=== PATIENT | female | born 1985 | race Two or more races ===

== ENCOUNTER → 2018-08-29 | Outpatient (CLI) | payer OTHER ==
[2018-08-29 11:48] LABS: BASOPHIL % 0.3 % (0-2); PLATELET COUNT 242 x10^3mcL (130-400)
[2018-08-29 11:54] LABS: RED CELL DISTRIBUTION WIDTH 15.7 % (11.5-14.5)
[2018-08-29 12:28] LABS: ALBUMIN 3.9 g/dL (3.4-5.0); ALKALINE PHOSPHATASE 62 U/L (46-116); ALT/SGPT 21 U/L (14-59); AST/SGOT 17 U/L (15-37); BILIRUBIN TOTAL 0.6 mg/dL (0.20-1.00); CALCIUM 8.5 mg/dL (8.5-10.1); CARBON DIOXIDE 23.1 mmol/L (21-32); CHLORIDE SERUM 105 mmol/L (98-107); CHOLESTEROL 153 mg/dL (<200); CHOLESTEROL/HDL RATIO 4.1; CREATININE SERUM 0.7 mg/dL (0.6-1.0); FREE T4 0.88 ng/dL (0.76-1.46); GFR1 > 60 mL/min; GLUCOSE SERUM 93 mg/dL (74-106); HDL CHOLESTEROL 37 mg/dL (40-60); POTASSIUM SERUM 3.8 mmol/L (3.5-5.1); SODIUM SERUM 138 mmol/L (136-145); TOTAL PROTEIN, SERUM 7.9 g/dL (6.4-8.2); TRIGLYCERIDES 106 mg/dL (<150)
[2018-08-31 13:16] LABS: VITAMIN D 25-HYDROXY 17.7 ng/mL (30.0-100.0)
== END | disposition home or self-care (01) ==
LOC: LB 11:11
DX: Z00.00 Encounter for general adult medical examination without abnormal findings (principal); E04.0 Nontoxic diffuse goiter
CPT/HCPCS: 84439

== ENCOUNTER → 2018-08-31 | Outpatient (CLI) | payer OTHER | END | disposition home or self-care (01) | LOC: US 09:35 | PROC: BG44ZZZ Ultrasonography of Thyroid Gland (ICD-10-PCS; principal; 2018-08-31) | DX: E04.0 Nontoxic diffuse goiter (principal) ==